=== PATIENT | female | born 1950 | race Caucasian/White ===

== ENCOUNTER 2020-07-06 10:34 | Day surgery (SDC) | payer MEDICARE ==
[2020-07-03 16:11] VITALS: BMI 28.8
[~2020-07-06 10:34] MED LIST: DEXAMETHASONE SOD PHOSPHATE 4 MG/ML 1 ML VIAL IV ONE; HYDROmorphone 0.5 MG/0.5 ML SYRINGE IVP PRN; LACTATED RINGERS 1,000 ML IV SCH; MIDAZOLAM 2 MG/2 ML VIAL IV PRN; ONDANSETRON 4 MG/2 ML VIAL IVP ONE
[2020-07-06] MEDS ORDERED: LIDOCAINE 1% (10MG/ML) FOR IV START INTRADERMA ONE (11:24)
[2020-07-06] MEDS ORDERED: CLINDAMYCIN 600 MG in DEXTROSE 5% IN WATER 50 ML IVPB ONE ×2 (12:45)
[2020-07-06] MEDS ORDERED: MIDAZOLAM 2 MG/2 ML VIAL ONE (12:58)
[2020-07-06] MEDS ORDERED: LIDOCAINE 1% INJ 10MG/ML (20 ML MDV) ONE (12:58)
[2020-07-06] MEDS ORDERED: PROPOFOL 10 MG/ML 20 ML VIAL IV ONE (12:58)
[2020-07-06] MEDS ORDERED: fentaNYL (PF) 50 MCG/ML 2 ML AMP ONE (12:58)
[2020-07-06] MEDS ORDERED: SUCCINYLCHOLINE CHLORIDE 100 MG/5 ML SYR IV ONE (12:58)
[2020-07-06] MEDS ORDERED: SODIUM CHLORIDE 0.9% 50 ML with CLINDAMYCIN 600 MG IV ONE ×2 (13:15)
[2020-07-06] MEDS ORDERED: BUPIVACAINE (PF) 0.25% 30 ML VIAL SQ ONE (14:14)
[2020-07-06 14:50] VITALS: TEMP 97
[2020-07-06 15:02] VITALS: RESP 16
[2020-07-06] MEDS ORDERED: LACTATED RINGERS 1,000 ML IV ONE (15:02)
--- NOTE | 2020-07-06 15:04 | P.OP ---
Date of Procedure: 07/06/20 Preoperative Diagnosis: 1. Deformity of right great toe 2. Hammertoe second right foot Postoperative Diagnosis: 1. Same 2. Same Procedure(s) Performed: 1. First metatarsal phalangeal joint arthrodesis right foot 2. 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 Due to this abnormality the patient had tendency to drag right total locking increase her fall risk. The contraction of the second toe as a result from the lack of propulsion with the great toe Description of Procedure: The patient was brought into the operating room placed on table supine position. Timeout was taken to confirm correct patient identifiers, correct procedure, and correct site of surgery. When the staff in the room was in agreement the patient was placed under general anesthetic. A well-padded tourniquet was placed on the right ankle. 30 mL 0.25% Marcaine was dressing the posterior tibial nerve block as well as forefoot block. The right foot was prepped and draped usual manner. The foot was exsanguinated with an Esmarch bandage and the tourniquet inflated to 250 hours mercury Attention was directed over the dorsomedial aspect of the first MPJ where a linear incision was made between the long extensor tendon and neurovascular structures. It was deepened down to the saphenous tissue careful to identify voiding retract any neurovascular structures and cauterize any bleeding vessels. The dissection was continued down to the joint capsule. A linear incision was made to the Periosteal Structures Stay Medial to the Long Extensor Tendon. Subperiosteal Dissection Was Performed to Expose the Entirety of the First Metatarsal Phalangeal Joint. The Guidewire for the Convict Cave Reamer Was Inserted into the Central Aspect of the Head of the First Metatarsal and Advanced into the Medullary Canal Parallel to the Long Access of the Metatarsal. The concave reamer was inserted over the guidewire and then used to denude the articular cartilage and subchondral bone of the first metatarsal head. Once that was completed the guidewire was removed which was then used to fenestrate the head of the first metatarsal to promote bleeding and bony ingrowth. The guidewire was then inserted into the central aspect of the base of the proximal phalanx in a similar manner into the medullary canal parallel to the long access. The convex reamer was then used to remove the articular cartilage and subchondral bone, down to bleeding medullary bone. The guidewire was removed and was also used to fenestrate the surface. The area was thoroughly irrigated with lactated Ringer's. The joint was then held into corrected alignment and the trial size first MPJ fusion plate was positioned and temporarily fixated. Under C-arm the position of the plate was checked and once it was satisfactory the guidewire for a 4.0 screw was then inserted the medial base of the proximal phalanx and advanced the direction indicated by lying on the plate to avoid any screws. Countersunk and overdrill was performed and the screw was inserted over the guidewire and advanced until a compressed arthrodesis site. Fluoroscopic imaging confirmed proper placement of the screw. The trial was removed and then the actual plate was positioned over the arthrodesis site utilizing the lines of the plate is proper landmarks over the first metatarsal phalangeal joint. It was temporarily fixated and the first screw was the distal locking screw on the next screws the proximal compression screw that was done in a compression technique the remaining holes were filled with locking screws. Final fluoroscopic imaging showed corrected alignment of the great toe with proper position of hardware and good bony contact at the arthrodesis site. The wound is irrigated thoroughly with lactated Ringer's. The capsule was closed with 2-0 Vicryl, subcutaneous closure done with 4-0 Monocryl and skin closure done with 3-0 StrataFix in a running subcuticular manner. Attention then directed over the second metatarsal phalangeal joint where a linear incision was made directly over the joint. It was deepened down the saphenous tissue careful to identify, avoid, and retract any neurovascular structures and cauterize any bleeding vessels. Blunt dissection was continued down to the second metatarsal phalangeal joint. Once the joint was identified scalpel was used to transect the extensor tendons as well as a dorsal capsular structures. A metatarsal elevator was then used to free any plantar adhesions. Once that was completed the dorsal contraction of the digit was fully corrected and the second digit was in a more plantar grade position. The wound is irrigated with lactated Ringer's. Subcutaneous closure was done with 4-0 Monocryl, and skin closure done with 4-0 Monocryl and a running subcuticular manner. Exofin glue was applied to the skin and allowed to dry. Steri-Strips were placed across both incisions. Adaptic and dry sterile gauze was applied to the right foot and secured. Tourniquet was released and capillary refill return to all digits on the right foot. Anesthesia was reversed and the patient was taken recovery with vital signs stable.
--- NOTE | 2020-07-06 15:43 | XR ---
Fluoroscopy INDICATION: Pain FINDINGS: Fluoroscopy time: 0 seconds. Images obtained: 1. IMPRESSIONS: 1. Documentation of fluoroscopy.
--- NOTE | 2020-07-06 15:43 | FL ---
Fluoroscopy INDICATION: Pain FINDINGS: Fluoroscopy time: 3 seconds. Images obtained: 1. IMPRESSIONS: 1. Documentation of fluoroscopy.
[2020-07-06] MEDS ORDERED: HYDROcodone/APAP 5-325MG 1 EACH TAB ONE (16:34)
[2020-07-06] MEDS ORDERED: HYDROcodone/APAP 5-325MG 1 EACH TAB PO ONE (16:35)
[2020-07-06 17:02] VITALS: BP 113/71; PULSE 78
== END 2020-07-06 17:27 | disposition home or self-care (01) ==
LOC: OR 10:34
PROVIDERS: ATTEND Podiatrist
DX: M20.5X1 Other deformities of toe(s) (acquired), right foot (principal); M20.41 Other hammer toe(s) (acquired), right foot; J45.909 Unspecified asthma, uncomplicated; E03.9 Hypothyroidism, unspecified; I48.0 Paroxysmal atrial fibrillation; E66.9 Obesity, unspecified; I07.1 Rheumatic tricuspid insufficiency; I34.0 Nonrheumatic mitral (valve) insufficiency; K21.9 Gastro-esophageal reflux disease without esophagitis; M19.90 Unspecified osteoarthritis, unspecified site; Z68.32 Body mass index [BMI] 32.0-32.9, adult; Z79.01 Long term (current) use of anticoagulants; Z79.890 Hormone replacement therapy; Z79.899 Other long term (current) drug therapy; Z88.1 Allergy status to other antibiotic agents; Z88.8 Allergy status to other drugs, medicaments and biological substances; Z82.49 Family history of ischemic heart disease and other diseases of the circulatory system
CPT/HCPCS: 28750; 28270; 73660; C1713; J2250; J1100; J2405; J2001; J3010; J0330; J2704; J1170

== ENCOUNTER → 2020-10-04 | Outpatient (CLI) | payer MEDICARE ==
--- NOTE | 2020-10-04 11:35 | CT ---
EXAMINATION TYPE: CT foot RT wo con DATE OF EXAM: 10/04/2020 COMPARISON: Intraoperative C-arm image 07/06/2020 HISTORY: Pain in right foot, hammer toe, s/p surgery CT DLP: 187.1 mGycm Automated exposure control for dose reduction was used. Helical imaging through the foot. Multiple re formatted reconstructions performed. FINDINGS: Postop changes as noted on plain film, patient is status post arthrodesis the at the metatarsophalang eal joint of the first digit, oblique screw across the joint extends and breaches the cortex medially , the dorsal screws also, in close proximity to the cortex at the volar aspect especially the proxima l screw at the proximal phalanx, the proximal screw at the metatarsal. At the level of the joint ther e is some persistent lucency present, possible subacute chondral geode formation or bone resorption b est seen on sagittal image 46., There is soft tissue swelling. Marked degenerative change present tar sometatarsal joint of the second and third digits. Hypertrophic changes are present extending between the metatarsals of the first second and third digits, dorsal excrescences are present with some loca l mass effect on the soft tissues. Degenerative changes with hypertrophic change also present at the intertarsal joints. Digits are flexed. There is no fracture or dislocation. The second proximal phalanx shows cortical irregularity consiste nt with previous fracture that is healed, excrescence is noted at the volar aspect likely related to remodeling from prior fracture. There is a plantar calcaneal spur. Small enthesophyte present at the insertion of the Achilles tendon. Some mild spurring present at the tibiotalar joint. IMPRESSION: POSTOP CHANGES. OSTEOARTHRITIS. REMOTE POSTTRAUMATIC CHANGES. SOFT TISSUE SWELLING, CORRELATE FOR MARY BETH LULITIS. ADDITIONAL FINDINGS ABOVE.
== END | disposition home or self-care (01) ==
LOC: RADCTMAIN 08:28
PROVIDERS: ATTEND Podiatrist
DX: M19.071 Primary osteoarthritis, right ankle and foot (principal); Z98.890 Other specified postprocedural states